=== PATIENT | female | born 1950 | race Caucasian/White ===

== ENCOUNTER → 2018-10-02 | Outpatient (CLI) | payer OTHER ==
[~2018-10-02] MED LIST: METHOCARBAMOL500 MG PO; NABUMETONE500 MG PO; PERCOCET 5/3251 TAB PO
== END | disposition home or self-care (01) ==
LOC: MAMO-SONO 10:01
DX: Z12.31 Encounter for screening mammogram for malignant neoplasm of breast (principal); E08.8 Diabetes mellitus due to underlying condition with unspecified complications; E03.8 Other specified hypothyroidism; E04.8 Other specified nontoxic goiter; I10 Essential (primary) hypertension

== ENCOUNTER 2022-01-31 10:07 | Outpatient (CLI) | payer OTHER | END 2022-01-31 10:15 | disposition home or self-care (01) | LOC: MAMO-SONO 10:07 | PROVIDERS: ATTEND Specialist | DX: Z12.31 Encounter for screening mammogram for malignant neoplasm of breast (principal) ==

== ENCOUNTER 2022-02-10 11:44 | Outpatient (CLI) | payer OTHER | END 2022-02-10 11:45 | disposition home or self-care (01) | LOC: LAB 11:44 | PROVIDERS: ATTEND Radiology Diagnostic Radiology | DX: R10.9 Unspecified abdominal pain (principal) ==

== ENCOUNTER 2024-01-18 08:42 | Outpatient (CLI) | payer OTHER | END 2024-01-18 08:49 | disposition home or self-care (01) | LOC: MAMO-SONO 08:42 | PROVIDERS: ATTEND Internal Medicine | DX: N63.0 Unspecified lump in unspecified breast (principal); N64.4 Mastodynia; Z12.31 Encounter for screening mammogram for malignant neoplasm of breast ==

== ENCOUNTER 2025-01-20 13:29 | Outpatient (CLI) | payer OTHER | END 2025-01-20 13:33 | disposition home or self-care (01) | LOC: MAMO-SONO 13:29 | PROVIDERS: ATTEND Specialist | DX: N63.0 Unspecified lump in unspecified breast (principal); Z12.31 Encounter for screening mammogram for malignant neoplasm of breast ==